=== PATIENT | male | born 1950 | race Caucasian/White ===

== ENCOUNTER 2016-10-22 12:41 | Emergency (ER) | payer BC, MEDICARE ==
[2016-10-22 13:55] LABS: BASO % 0.5 % (0.2-1.2); EOS # 0.1 10_X3_uL (0.0-0.5); EOS % 1.6 % (0.8-7.0); GRAN # 2.2 10_X3_uL (1.8-5.4); GRAN % 60.8 % (34.0-67.9); HEMATOCRIT 41.4 % (40-51); HEMOGLOBIN 13.8 g/dL (13.7-17.5); LYMPH # 0.8 10_X3_uL (1.3-3.6); LYMPH % 22.5 % (21.8-53.1); MEAN CORPUSCULAR HEMOGLOBIN 31.8 pg (27.0-33.0); MEAN CORPUSCULAR HGB CONC 33.3 g/dL (32.0-36.0); MEAN CORPUSCULAR VOLUME 95.4 fL (79-92); MEAN PLATELET VOLUME 9.1 fl (7.5-11.5); MONO # 0.5 10_X3_uL (0.3-0.8); MONO % 14.6 % (5.3-12.2); PLATELET COUNT 135 x10_3/uL (163-337); RED BLOOD COUNT 4.34 x10_6/uL (4.6-6.1); RED CELL DISTRIBUTION WIDTH 13.5 % (11.6-14.4); WHITE BLOOD COUNT 3.7 x10_3/uL (4.2-9.1)
[2016-10-22 14:04] LABS: BLOOD UREA NITROGEN 12 mg/dL (7-18); CALCIUM 9.3 mg/dL (8.7-10.7); CARBON DIOXIDE 27 mmol/L (21-32); GLUCOSE,RANDOM 76 mg/dL (70-99); POTASSIUM 4.6 mmol/L (3.5-5.1); SODIUM 139 mmol/L (136-145)
== END 2016-10-22 15:25 | disposition home or self-care (01) ==
LOC: ER 12:41
PROVIDERS: Family Medicine
DX: J20.9 Acute bronchitis, unspecified (principal); J02.9 Acute pharyngitis, unspecified; I10 Essential (primary) hypertension; Z79.899 Other long term (current) drug therapy
CPT/HCPCS: 36415; 71020; 80048; 85025; 87400; 99283